=== PATIENT | male | born 1995 | race Caucasian/White ===

== ENCOUNTER 2017-10-11 12:34 | Emergency (ER) | payer OTHER ==
[2017-10-11 12:45] VITALS: BP 135/63; PULSE 83; RESP 16; TEMP 98.4; O2SAT 98
--- NOTE | 2017-10-11 13:21 | EDPHY ---
HPI/HX/ROS/PE/MDM Narrative: CHIEF COMPLAINT:Right shoulder injury HPI: The patient is a 22-year-old healthy male with no medical problems. Yesterday he was snowboarding when he fell and landed on his right shoulder. He complains of pain along his clavicle, right anterior chest and right posterior chest since that accident. He denies loss of consciousness, numbness , weakness or tingling. He denies neck pain or headache. REVIEW OF SYSTEMS: Aside from elements discussed in the HPI, a comprehensive 10-point review of systems was reviewed and is negative. PMH: None significant. SOCIAL HISTORY: Single. Denies alcohol or drug abuse. PHYSICAL EXAM: General:Patient is alert, in no acute distress. Neck: Normal inspection. Full range of motion. No midline neck pain. Respiratory:No respiratory distress. Breath sounds normal bilaterally. Cardiovascular: Regular rate and rhythm. Strong peripheral pulses. Normal cap refill. Abdomen:The abdomen is nontender to palpation. There are no peritoneal signs. There are normal bowel sounds. Back: Normal to inspection. No tenderness to palpation. Extremities: Right shoulder: Normal appearance. Full range of motion. No tenderness to palpation along clavicle, scapula, AC joint or sternum. Mild diffuse tenderness through musculature of pectoralis and trapezius. Neuro: Oriented x3. Normal motor function. Normal sensory function. MDM: This patient presents with diffuse right shoulder pain after snowboarding injury. There is no evidence of scapular fracture, clavicle fracture, rib fracture or pneumothorax. I recommended that we perform a chest x-ray and x- ray of the cervical spine, but patient declines. Upon discussion of doing more imaging, the patient is actually banging on his chest with his hand and states this elicits no pain. We discussed strict return precautions. I will instruct the patient to take ibuprofen as directed and provide a short course of Flexeril. He understands that should he not feel better in the next few days that he will need to follow up with an orthopedist. His abdomen is benign and I see no evidence of referred pain. - Data Points Imaging Results: Imaging Impressions Clavicle X-Ray 10/11/17 12:56 Impression: There is no acute osseous abnormality identified. Imaging: I viewed and interpreted images myself General Time Seen by Provider: 10/11/17 12:55 Initial Vital Signs: Initial Vital Signs Temperature (C) 36.9 C 10/11/17 12:42 Heart Rate 83 10/11/17 12:42 Respiratory Rate 16 10/11/17 12:42 Blood Pressure 135/63 H 10/11/17 12:42 O2 Sat (%) 98 10/11/17 12:42 O2 Delivery Mode Room Air Allergies/Adverse Reactions: No Known Allergies Allergy (Verified 10/11/17 12:41) Home Medications: Medication Instructions Recorded Cyclobenzaprine [Flexeril] 10 mg PO TID #10 tab 10/11/17 Departure - Departure Disposition: Home, Routine, Self-Care Clinical Impression: Shoulder sprain Condition: Good Instructions: Shoulder Sprain (ED) Additional Instructions: Rest, ice, ibuprofen as directed. Follow up with an orthopedic surgeon within one week if pain persists. Return to the emergency department for worsening pain, swelling, numbness, weakness or other concerns. Activity as tolerated. Referrals: SHAWNA Cotter,. [Primary Care Provider] - As per Instructions Paty Cardona MD [Medical Doctor] - As per Instructions Prescriptions: Cyclobenzaprine [Flexeril] 10 mg PO TID #10 tab
== END 2017-10-11 13:29 | disposition home or self-care (01) ==
DX: S43.401A Unspecified sprain of right shoulder joint, initial encounter (principal); V00.311A Fall from snowboard, initial encounter; Y99.8 Other external cause status; Y93.23 Activity, snow (alpine) (downhill) skiing, snowboarding, sledding, tobogganing and snow tubing